=== PATIENT | male | born 1965 | race Caucasian/White ===

== ENCOUNTER 2017-06-30 14:14 | Emergency (ER) | payer BC ==
--- NOTE | 2017-06-30 15:05 | ERPHSYRPT ---
- History of Present Illness Time Seen by Provider: 06/30/17 14:55 Source: patient Exam Limitations: no limitations (No now is EKGs and great) Physician History: The patient is a 51-year-old male with his complaining that he had a headache and wasn't feeling well at work today. His face was warm. He was slightly nauseated. He denies any chest pain or shortness of breath. He took his blood pressure and it was elevated significantly at work. He said it was 170/109. He stopped taking his hypertensive medicines about one and a half years ago. His past medical history is significant for hypertension. Timing/Duration: today Severity: moderate Modifying Factors: Improves With: nothing Associated Symptoms: nausea, headaches, No shortness of breath, No cough, No chest pain Allergies/Adverse Reactions: No Known Drug Allergies Allergy (Verified 06/30/17 14:30) Hx Tetanus, Diphtheria Vaccination/Date Given: Yes Hx Influenza Vaccination/Date Given: No (2011) Hx Pneumococcal Vaccination/Date Given: No - Review of Systems Constitutional: No Fever, No Chills Eyes: No Symptoms Ears, Nose, & Throat: No Symptoms Respiratory: No Cough, No Dyspnea Cardiac: No Chest Pain, No Edema, No Syncope Abdominal/Gastrointestinal: Nausea, No Vomiting, No Diarrhea Genitourinary Symptoms: No Dysuria Musculoskeletal: No Back Pain, No Neck Pain Skin: No Rash Neurological: Headache Psychological: No Symptoms Hematologic/Lymphatic: No Symptoms Immunological/Allergic: No Symptoms All Other Systems: Reviewed and Negative - Past Medical History Pertinent Past Medical History: Yes Neurological History: No Pertinent History ENT History: No Pertinent History Cardiac History: Hypertension Respiratory History: Bronchitis, Pneumonia Endocrine Medical History: No Pertinent History Musculoskeletal History: No Pertinent History GI Medical History: GERD, Hernia, Irritable Bowel History: No Pertinent History Psycho-Social History: No Pertinent History Male Reproductive Disorders: No Pertinent History Other Medical History: HIATAL HERNIA - Past Surgical History Past Surgical History: Yes Neuro Surgical History: No Pertinent History Cardiac: No Pertinent History Respiratory: No Pertinent History Gastrointestinal: Appendectomy, Hernia Repair Genitourinary: No Pertinent History Musculoskeletal: Amputation Male Surgical History: No Pertinent History Other Surgical History: RIGHT PINKY AMPUTATION. Hiatal hernia repair. Abdominal hernia repair. - Social History Smoking Status: Current every day smoker How long have you smoked: 30 years Exposure to second hand smoke: Yes Drug Use: none Patient Lives Alone: No - Nursing Vital Signs Nursing Vital Signs: Initial Vital Signs Temperature 97.4 F 06/30/17 14:22 Pulse Rate 87 06/30/17 14:22 Respiratory Rate 18 06/30/17 14:22 Blood Pressure 199/125 06/30/17 14:22 O2 Sat by Pulse Oximetry 99 06/30/17 14:22 Pain Scale Pain Intensity 4 - Physical Exam General Appearance: no apparent distress, alert Eye Exam: PERRL/EOMI, eyes nml inspection Ears, Nose, Throat Exam: normal ENT inspection Neck Exam: normal inspection, non-tender, supple, full range of motion Respiratory Exam: normal breath sounds, lungs clear, No respiratory distress Cardiovascular Exam: regular rate/rhythm, normal heart sounds, normal peripheral pulses Gastrointestinal/Abdomen Exam: soft, normal bowel sounds, No tenderness, No mass Rectal Exam: not done Back Exam: normal inspection, normal range of motion, No CVA tenderness, No vertebral tenderness Extremity Exam: normal inspection, normal range of motion, pelvis stable Neurologic Exam: alert, oriented x 3, cooperative, normal mood/affect, nml cerebellar function, nml station & gait, sensation nml, No motor deficits Skin Exam: normal color, warm, dry, No rash Lymphatic Exam: No adenopathy SpO2 Interpretation: normal - Course EKG Interpreted by Me: RATE, Sinus Rhythm, NORMAL AXIS, NORMAL INTERVALS, NORMAL QRS, NORMAL ST-T - Radiology Exams Chest X-ray Interpretation: Reviewed by me, Teleradiologist Report, Negative (per Dr Fernandez) Ordered Tests: Active Orders 24 hr Category Date Time Status EKG-ER Only STAT Care 06/30/17 15:08 Active IV Insertion STAT Care 06/30/17 15:08 Active CHEST 2 VIEWS (PA AND LAT) Stat Exams 06/30/17 15:09 Completed CBC W DIFF Stat Lab 06/30/17 14:45 Completed CMP Stat Lab 06/30/17 14:45 Completed LIPASE Stat Lab 06/30/17 14:45 Completed TROPONIN Q3H Lab 06/30/17 14:45 Completed TROPONIN Q3H Lab 06/30/17 18:15 Ordered TROPONIN Q3H Lab 06/30/17 21:15 Ordered TROPONIN Q3H Lab 07/01/17 00:15 Ordered TROPONIN Q3H Lab 07/01/17 03:15 Ordered Medication Summary Discontinued Medications Generic Name Dose Route Start Last Admin Trade Name Dori PRN Reason Stop Dose Admin Labetalol HCl 10 mg 06/30/17 15:10 06/30/17 15:15 Trandate 20 Mg/5 Ml Syringe IV 06/30/17 15:11 10 mg STAT ONE Administration Labetalol HCl Confirm 06/30/17 15:12 Trandate 20 Mg/5 Ml Syringe Administered 06/30/17 15:13 Dose 20 mg IV .STK-MED ONE Labetalol HCl 10 mg 06/30/17 16:08 06/30/17 16:16 Trandate 20 Mg/5 Ml Syringe IV 06/30/17 16:09 10 mg STAT ONE Administration Labetalol HCl Confirm 06/30/17 16:11 Trandate 20 Mg/5 Ml Syringe Administered 06/30/17 16:12 Dose 20 mg IV .STK-MED ONE Ondansetron HCl 4 mg 06/30/17 15:08 06/30/17 15:15 Zofran 4 Mg/2 Ml Vial IV 06/30/17 15:09 4 mg STAT ONE Administration Ondansetron HCl Confirm 06/30/17 15:15 Zofran 4 Mg/2 Ml Vial Administered 06/30/17 15:16 Dose 4 mg .ROUTE .STK-MED ONE Lab/Rad Data: Laboratory Result Diagrams 06/30/17 14:45 06/30/17 14:45 Laboratory Results 06/30/17 06/30/17 06/30/17 Range/Units 14:45 14:45 14:45 WBC 6.2 (4.0-10.5) K/mm3 RBC 5.25 (4.1-5.6) M/mm3 Hgb 15.7 (12.5-18.0) gm/dl Hct 46.2 (42-50) % MCV 88.0 (78-100) fl MCH 29.9 (26-32) pg MCHC 34.0 (32-36) g/dl RDW 13.1 (11.5-14.0) % Plt Count 165 (150-450) K/mm3 MPV 11.4 H (6-9.5) fl Gran % 58.6 (36.0-66.0) % Lymphocytes % 25.8 (24.0-44.0) % Monocytes % 12.8 H (0.0-12.0) % Eosinophils % 2.6 (0.00-5.0) % Basophils % 0.2 (0.0-0.4) % Basophils # 0.01 (0-0.4) Sodium 141 (137-145) mmol/L Potassium 3.8 (3.5-5.1) mmol/L Chloride 101 (98-107) mmol/L Carbon Dioxide 28 (22-30) mmol/L Anion Gap 15.3 H (5-15) MEQ/L BUN 13 (9-20) mg/dL Creatinine 0.85 (0.66-1.25) mg/dL Estimated GFR > 60 ML/MIN Glucose 94 (74-106) mg/dL Calcium 9.1 (8.4-10.2) mg/dL Total Bilirubin 0.30 (0.2-1.3) mg/dL AST 40 (17-59) U/L ALT 52 H (0-50) U/L Alkaline Phosphatase 75 (38-126) U/L Troponin I < 0.012 (0.000-0.034) ng/mL Serum Total Protein 7.8 (6.3-8.2) g/dL Albumin 4.4 (3.5-5.0) g/dL Lipase 94 (23-300) U/L - Progress Progress: improved Progress Note: 06/30/17 17:19 Pt given labetalol 10 mg twice by IV. Pt feeling better. BP now 146/98 manually. Counseled pt/family regarding: diagnosis - Departure Time of Disposition: 17:19 Departure Disposition: Home Clinical Impression: Hypertension Condition: Stable Critical Care Time: No Referrals: DANIEL ZEPEDA MD [Primary Care Provider] - Additional Instructions: You have an elevated blood pressure today. You were given labetalol 20 mg IV in the ER. Take bystolic 5mg daily. Follow-up with your primary care doctor in 1-2 days. Prescriptions: Nebivolol HCl [Bystolic] 5 mg PO DAILY #10 tablet
[2017-06-30] MEDS ORDERED: Zofran 4 MG/2 ML VIAL IV ONE (15:08)
[2017-06-30] MEDS ORDERED: TRANDATE 20 MG/5 ML SYRINGE IV ONE ×4 (15:10→16:11)
[2017-06-30] MEDS ORDERED: Zofran 4 MG/2 ML VIAL ONE (15:15)
[2017-06-30 15:31] LABS: BASOPHIL % 0.2 % (0.0-0.4); Basophil (Absolute #) 0.01 (0-0.4); Eosinophil % 2.6 % (0.00-5.0); Eosinophil (Absolute #) 0.16 (0-0.5); Granulocyte Absolute (ANC) 3.62 (1.4-6.9); Granulocytes % 58.6 % (36.0-66.0); Hematocrit 46.2 % (42-50); Hemoglobin 15.7 gm/dl (12.5-18.0); Lymphocyte (Absolute #) 1.59 (1.0-4.6); Lymphocytes % 25.8 % (24.0-44.0); Mean Corpuscular Hemoglobin 29.9 pg (26-32); Mean Platelet Volume 11.4 fl (6-9.5); Monocyte (Absolute #) 0.79 (0.0-1.3); Monocytes % 12.8 % (0.0-12.0); Platelet Count 165 K/mm3 (150-450); Red Blood Count 5.25 M/mm3 (4.1-5.6); Red Cell Distribution Width 13.1 % (11.5-14.0); White Blood Count 6.2 K/mm3 (4.0-10.5)
[2017-06-30 15:47] LABS: ALBUMIN 4.4 g/dL (3.5-5.0); ALKALINE PHOSPHATASE 75 U/L (38-126); ANION GAP 15.3 MEQ/L (5-15); BLOOD UREA NITROGEN 13 mg/dL (9-20); CHLORIDE 101 mmol/L (98-107); Calcium 9.1 mg/dL (8.4-10.2); Carbon Dioxide 28 mmol/L (22-30); Creatinine 1 0.85 mg/dL (0.66-1.25); Glucose 94 mg/dL (74-106); LIPASE 94 U/L (23-300); Potassium 3.8 mmol/L (3.5-5.1); SGOT/AST 40 U/L (17-59); SGPT/ALT 52 U/L (0-50); SODIUM 141 mmol/L (137-145); Total Protein 7.8 g/dL (6.3-8.2)
--- NOTE | 2017-06-30 16:15 | XRAY ---
Indication: Sudden onset hypertension. Work stress. Comparison: April 01, 2013. PA/lateral chest remains clear. Heart and mediastinal structures within normal limits. Bony thorax intact. No new/acute findings. Impression: Stable nonacute chest.
[2017-06-30 17:08] VITALS: O2SAT 99
[2017-06-30 17:48] VITALS: BP 150/97; PULSE 82
== END 2017-06-30 17:47 | disposition home or self-care (01) ==
LOC: ED 14:14
DX: I10 Essential (primary) hypertension (principal); R51 Headache
CPT/HCPCS: 36000; 36415; 71046; 80053; 83690; 84484; 85025; 93005; 96374; 96375; 96376; 99284; 99285; J2405

== ENCOUNTER 2018-08-12 18:53 | Observation (INO) | payer BC ==
[2018-08-12] MEDS ORDERED: NITRO-BID 2% UD PACKETS TOP ONE (19:18)
[2018-08-12] MEDS ORDERED: Nitrostat 0.4 MG (ED) SL ONE ×2 (19:18→19:27)
[2018-08-12] MEDS ORDERED: NITRO-BID 2% UD PACKETS ONE ×2 (19:26→19:30)
[2018-08-12 19:30] LABS: BASOPHIL % 0.3 % (0.0-0.4); Basophil (Absolute #) 0.02 (0-0.4); Eosinophil % 2.9 % (0.00-5.0); Eosinophil (Absolute #) 0.18 (0-0.5); Granulocyte Absolute (ANC) 3.35 (1.4-6.9); Granulocytes % 53.9 % (36.0-66.0); Hematocrit 43.9 % (42-50); Hemoglobin 15.2 gm/dl (12.5-18.0); Lymphocyte (Absolute #) 1.94 (1.0-4.6); Lymphocytes % 31.2 % (24.0-44.0); Mean Cell Volume 89.8 fl (78-100); Mean Corpuscular Hemoglobin 31.1 pg (26-32); Mean Corpuscular Hgb Concent. 34.6 g/dl (32-36); Monocyte (Absolute #) 0.73 (0.0-1.3); Monocytes % 11.7 % (0.0-12.0); Platelet Count 153 K/mm3 (150-450); Red Blood Count 4.89 M/mm3 (4.1-5.6); Red Cell Distribution Width 12.4 % (11.5-14.0); White Blood Count 6.2 K/mm3 (4.0-10.5)
[2018-08-12] MEDS ORDERED: Sodium Chloride 0.9% 1000 ML 1,000 ML IV SCH (19:30)
[2018-08-12 19:36] LABS: INR 1.05 (0.8-3.0); PROTIME 12.2 SECONDS (8.83-12.87)
--- NOTE | 2018-08-12 19:40 | ERPHSYRPT ---
- History of Present Illness Time Seen by Provider: 08/12/18 19:10 Historian: patient Exam Limitations: clinical condition Patient Subjective Stated Complaint: pt here for pain to chest that radiates down left arm and left leg for 2 weeks, no injury, some nausea today, no sob, no fever, Triage Nursing Assessment: pt alert, resp easy, skin w/d/p. no edema noted, moves all ext well, Physician History: PATIENT WITH A HISTORY OF HYPERTENSION, PREVIOUS EVALUATION FOR CORONARY ARTERY DISEASE WITH A NORMAL STRESS TEST 3-4 YEARS AGO, COMPLAINS OF INTERMITTENT SUBSTERNAL CHEST PAIN FOR 1 WEEK, WHICH HE DESCRIBES CHEST TIGHTNESS, OCCASIONAL RADIATION TO HIS ARMS, AND BACK. HAS PAIN SCALE 7/10, EXACERBATED UPON EXERTION, OCCASIONAL DYSPNEA, DISCOMFORT RADIATES TO LEFT ARM AND BACK. DENIES PALPITATIONS. Timing/Duration: week(s) Activities at Onset: activity Quality: sharpness, tightness Location: substernal Chest Pain Radiation: neck, back Severity of Pain-Max: moderate Severity of Pain-Current: moderate Modifying Factors: Improves With: exertion Associated Symptoms: shortness of breath, weakness Prior Chest Pain/Cardiac Workup: stress test Nitro Today/Relief: 0.4 mg x 2, provided by ED, mild relief Aspirin Treatment Today: 325 mg x 1, provided at home Allergies/Adverse Reactions: No Known Drug Allergies Allergy (Verified 08/12/18 19:03) Home Medications: Aspirin EC 325 mg [Ecotrin 325 MG] 325 mg DAILY 08/12/18 [History] Fluoxetine HCl 10 mg [Prozac 10 mg] 10 mg DAILY 08/12/18 [History] Hx Tetanus, Diphtheria Vaccination/Date Given: Yes Hx Influenza Vaccination/Date Given: No Hx Pneumococcal Vaccination/Date Given: No Immunizations Up to Date: Yes - Review of Systems Constitutional: No Symptoms, No Fever, No Chills Eyes: No Symptoms Ears, Nose, & Throat: No Symptoms Respiratory: No Symptoms, No Cough, No Dyspnea Cardiac: Chest Pain, No Edema, No Syncope Abdominal/Gastrointestinal: No Symptoms, No Abdominal Pain, No Nausea, No Vomiting, No Diarrhea Genitourinary Symptoms: No Symptoms, No Dysuria Musculoskeletal: No Symptoms, No Back Pain, No Neck Pain Skin: No Symptoms, No Rash Neurological: No Dizziness, No Focal Weakness, No Sensory Changes Psychological: No Symptoms Endocrine: No Symptoms All Other Systems: Reviewed and Negative - Past Medical History Pertinent Past Medical History: Yes Neurological History: No Pertinent History ENT History: No Pertinent History Cardiac History: Hypertension Respiratory History: Bronchitis, COPD, Pneumonia Endocrine Medical History: No Pertinent History Musculoskeletal History: No Pertinent History GI Medical History: GERD, Hernia, Irritable Bowel History: No Pertinent History Psycho-Social History: No Pertinent History Male Reproductive Disorders: No Pertinent History Other Medical History: HIATAL HERNIA - Past Surgical History Past Surgical History: Yes Neuro Surgical History: No Pertinent History Cardiac: No Pertinent History Respiratory: No Pertinent History Gastrointestinal: Appendectomy, Hernia Repair Genitourinary: No Pertinent History Musculoskeletal: Amputation Male Surgical History: No Pertinent History Other Surgical History: RIGHT PINKY AMPUTATION. Hiatal hernia repair. Abdominal hernia repair. - Social History Smoking Status: Former smoker How long have you smoked: 30 years Exposure to second hand smoke: Yes Drug Use: none Patient Lives Alone: No - Nursing Vital Signs Nursing Vital Signs: Initial Vital Signs Temperature 97.0 F 08/12/18 18:56 Pulse Rate 78 08/12/18 18:56 Respiratory Rate 16 08/12/18 18:56 Blood Pressure 150/98 08/12/18 18:56 O2 Sat by Pulse Oximetry 96 08/12/18 18:56 Pain Scale Pain Intensity 2 - Physical Exam General Appearance: no apparent distress, alert Eye Exam: PERRL/EOMI, eyes nml inspection Ears, Nose, Throat Exam: normal ENT inspection, moist mucous membranes Neck Exam: normal inspection, non-tender, supple, full range of motion Respiratory Exam: normal breath sounds, lungs clear, No respiratory distress Cardiovascular Exam: regular rate/rhythm, normal heart sounds, other (THERE IS A SYSTOLIC EJECTION MURMUR GRADE 3/6) Gastrointestinal/Abdomen Exam: soft, No tenderness, No mass Back Exam: normal inspection, No CVA tenderness, No vertebral tenderness Extremity Exam: normal inspection, normal range of motion Neurologic Exam: alert, oriented x 3, cooperative, normal mood/affect, sensation nml, No motor deficits Skin Exam: normal color, warm, dry SpO2 Interpretation: normal SpO2: 98 O2 Delivery: Room Air - Course EKG Interpreted by Me: RATE, Sinus Rhythm (RATE 71 NO ISCHEMIC CHANGES OR ECTOPY ), NORMAL AXIS Ordered Tests: Active Orders 24 hr Category Date Time Status Up With Assistance ROUTINE Activity 08/12/18 20:22 Ordered Call Admit Doctor for Orders ROUTINE Care 08/12/18 20:21 Ordered Behavioral Psychologist STAT Care 08/12/18 19:19 Active Code Status Order ROUTINE Care 08/12/18 20:21 Ordered EKG-ER Only STAT Care 08/12/18 19:18 Active IV Care Q6H Care 08/12/18 20:21 Ordered IV Insertion STAT Care 08/12/18 19:18 Active Implement Chest Pain Pathway ROUTINE Care 08/12/18 20:21 Ordered Oxygen-ED Only Nasal Cannula 2 lpm Care 08/12/18 19:[address] in Observation ROUTINE Care 08/12/18 20:21 Ordered Andrews Hose, Apply ROUTINE Care 08/12/18 20:21 Ordered Vital Signs Q4H Care 08/12/18 20:21 Ordered Weight,Daily 0600 Care 08/12/18 20:21 Ordered Cardiac Diet Diet 08/12/18 Breakfast Ordered CHEST 1 VIEW (PORTABLE) Stat Exams 08/12/18 19:18 Taken CBC W DIFF Stat Lab 08/12/18 19:25 Completed CMP Stat Lab 08/12/18 19:25 Completed D-DIMER QUANTITATION Stat Lab 08/12/18 19:25 Completed LIPID PROFILE AM.LAB Lab 08/13/18 04:00 Ordered NT PRO BNP Stat Lab 08/12/18 19:25 Completed PROTIME WITH INR Stat Lab 08/12/18 19:25 Completed TROPONIN Q3H Lab 08/12/18 19:25 Completed TROPONIN Q3H Lab 08/12/18 22:30 Ordered TROPONIN Q3H Lab 08/13/18 01:30 Ordered TROPONIN Q3H Lab 08/13/18 04:30 Ordered TROPONIN Q3H Lab 08/13/18 07:30 Ordered EKG Q8HX2,QAMX3,PRN RT 08/12/18 20:21 Ordered Oxygen Nasal Cannula 2 lpm RT 08/12/18 20:21 Ordered Pulse Oximetry Q4H RT 08/12/18 20:21 Ordered Transfer Order Routine Transfer 08/12/18 Ordered Medication Summary Generic Name Dose Route Start Last Admin Trade Name Freq PRN Reason Stop Dose Admin Sodium Chloride 1,000 mls @ 50 mls/hr 08/12/18 19:30 08/12/18 19:28 Sodium Chloride 0.9% 1000 Ml IV 09/11/18 19:29 50 mls/hr .Q20H EDGARDO Administration Discontinued Medications Generic Name Dose Route Start Last Admin Trade Name Dori PRN Reason Stop Dose Admin Nitroglycerin 0.4 mg 08/12/18 19:18 08/12/18 19:29 Nitrostat 0.4 Mg (Ed) SL 08/12/18 19:19 0.4 mg STAT ONE Administration Nitroglycerin 1 gm 08/12/18 19:18 08/12/18 19:29 Nitro-Bid 2% Ud Packets TOP 08/12/18 19:19 1 gm STAT ONE Administration Nitroglycerin Confirm 08/12/18 19:26 Nitro-Bid 2% Ud Packets Administered 08/12/18 19:27 Dose 1 gm .ROUTE .STK-MED ONE Nitroglycerin Confirm 08/12/18 19:27 Nitrostat 0.4 Mg (Ed) Administered 08/12/18 19:28 Dose 0.4 mg SL .STK-MED ONE Nitroglycerin Confirm 08/12/18 19:30 Nitro-Bid 2% Ud Packets Administered 08/12/18 19:31 Dose 1 gm .ROUTE .STK-MED ONE Lab/Rad Data: Laboratory Result Diagrams 08/12/18 19:25 08/12/18 19:25 Laboratory Results 08/12/18 08/12/18 08/12/18 Range/Units 19:25 19:25 19:25 WBC (4.0-10.5) K/mm3 RBC (4.1-5.6) M/mm3 Hgb (12.5-18.0) gm/dl Hct (42-50) % MCV (78-100) fl MCH (26-32) pg MCHC (32-36) g/dl RDW (11.5-14.0) % Plt Count (150-450) K/mm3 MPV (6-9.5) fl Gran % (36.0-66.0) % Eos # (Auto) (0-0.5) Absolute Lymphs (auto) (1.0-4.6) Absolute Monos (auto) (0.0-1.3) Lymphocytes % (24.0-44.0) % Monocytes % (0.0-12.0) % Eosinophils % (0.00-5.0) % Basophils % (0.0-0.4) % Absolute Granulocytes (1.4-6.9) Basophils # (0-0.4) PT 12.2 (8.83-12.87) SECONDS INR 1.05 (0.8-3.0) D-Dimer 389 (215-500) ng/mL Sodium 140 (137-145) mmol/L Potassium 3.9 (3.5-5.1) mmol/L Chloride 105 (98-107) mmol/L Carbon Dioxide 23 (22-30) mmol/L Anion Gap 15.3 H (5-15) MEQ/L BUN 14 (9-20) mg/dL Creatinine 0.75 (0.66-1.25) mg/dL Estimated GFR > 60.0 ML/MIN Glucose 88 (74-106) mg/dL Calcium 9.5 (8.4-10.2) mg/dL Total Bilirubin 0.20 (0.2-1.3) mg/dL AST 38 (17-59) U/L ALT 61 H (0-50) U/L Alkaline Phosphatase 65 (38-126) U/L Troponin I < 0.012 (0.000-0.034) ng/mL NT-Pro-B Natriuret Pep 47.7 (0-900) pg/mL Serum Total Protein 7.9 (6.3-8.2) g/dL Albumin 4.3 (3.5-5.0) g/dL 08/12/ Range/Units 19:25 WBC 6.2 (4.0-10.5) K/mm3 RBC 4.89 (4.1-5.6) M/mm3 Hgb 15.2 (12.5-18.0) gm/dl Hct 43.9 (42-50) % MCV 89.8 (78-100) fl MCH 31.1 (26-32) pg MCHC 34.6 (32-36) g/dl RDW 12.4 (11.5-14.0) % Plt Count 153 (150-450) K/mm3 MPV 11.0 H (6-9.5) fl Gran % 53.9 (36.0-66.0) % Eos # (Auto) 0.18 (0-0.5) Absolute Lymphs (auto) 1.94 (1.0-4.6) Absolute Monos (auto) 0.73 (0.0-1.3) Lymphocytes % 31.2 (24.0-44.0) % Monocytes % 11.7 (0.0-12.0) % Eosinophils % 2.9 (0.00-5.0) % Basophils % 0.3 (0.0-0.4) % Absolute Granulocytes 3.35 (1.4-6.9) Basophils # 0.02 (0-0.4) PT (8.83-12.87) SECONDS INR (0.8-3.0) D-Dimer (215-500) ng/mL Sodium (137-145) mmol/L Potassium (3.5-5.1) mmol/L Chloride (98-107) mmol/L Carbon Dioxide (22-30) mmol/L Anion Gap (5-15) MEQ/L BUN (9-20) mg/dL Creatinine (0.66-1.25) mg/dL Estimated GFR ML/MIN Glucose (74-106) mg/dL Calcium (8.4-10.2) mg/dL Total Bilirubin (0.2-1.3) mg/dL AST (17-59) U/L ALT (0-50) U/L Alkaline Phosphatase (38-126) U/L Troponin I (0.000-0.034) ng/mL NT-Pro-B Natriuret Pep (0-900) pg/mL Serum Total Protein (6.3-8.2) g/dL Albumin (3.5-5.0) g/dL - Progress Progress Note: 08/12/18 19:42 PATIENT TOOK AN ADULT ASPIRIN 325MG ORALLY, IV NORMAL SALINE 50ML/HR, NTG 0.4MG SL Q 5MIN X 3, NITROPASTE 1"ANTERIOR CHEST WALL 08/12/18 20:19, CHEST PAIN IMPROVED TO PAIN SCALE 2/10, ALL LAB TEST TROPONIN, DDIMER REVIEWED AND ARE NORMAL Discussed with : Neptali (DISCUSSED WITH DR ZEPEDA AT 1999 FOR OBSERVATION) - Departure Departure Disposition: Observation Clinical Impression: ACUTE CHEST PAIN Condition: Stable Critical Care Time: No Referrals: DANIEL ZEPEDA MD [Primary Care Provider] -
[2018-08-12 19:53] LABS: ALBUMIN 4.3 g/dL (3.5-5.0); ALKALINE PHOSPHATASE 65 U/L (38-126); ANION GAP 15.3 MEQ/L (5-15); BLOOD UREA NITROGEN 14 mg/dL (9-20); CHLORIDE 105 mmol/L (98-107); Calcium 9.5 mg/dL (8.4-10.2); Carbon Dioxide 23 mmol/L (22-30); Creatinine 1 0.75 mg/dL (0.66-1.25); Glucose 88 mg/dL (74-106); NT PRO BNP 47.7 pg/mL (0-900); Potassium 3.9 mmol/L (3.5-5.1); SGOT/AST 38 U/L (17-59); SGPT/ALT 61 U/L (0-50); SODIUM 140 mmol/L (137-145); Total Protein 7.9 g/dL (6.3-8.2)
[2018-08-12] MEDS ORDERED: MAALOX ES 30 ML UNIT DOSE PO PRN (20:21)
[2018-08-12] MEDS ORDERED: TYLENOL 325 MG PO PRN (20:21)
[2018-08-12] MEDS ORDERED: MILK OF MAGNESIA 30 ML PO PRN (20:21)
[2018-08-12] MEDS ORDERED: Nitrostat 0.4 MG Tablet SL PRN (20:21)
[2018-08-12] MEDS ORDERED: Zofran 4 MG/2 ML VIAL IV PRN (20:21)
[2018-08-12] MEDS ORDERED: Senokot-S Tablet PO PRN (20:21)
[2018-08-12] MEDS: Pepcid 20 MG PO SCH (23:14)
[2018-08-13] MEDS: NITRO-BID 2% UD PACKETS TOP SCH ×2 (02:34→11:22)
[2018-08-13 05:15] LABS: Risk Ratio 6.6
--- NOTE | 2018-08-13 08:38 | XRAY ---
Indication: Chest pain. Comparison: June 30, 2017. Portable chest remains clear. Heart and mediastinal structures within normal limits. Bony thorax intact again with mild degenerative changes. No new/acute findings.
[2018-08-13] MEDS: PROZAC 10 MG PO SCH ×2 (09:20→09:44)
[2018-08-13] MEDS: Pepcid 20 MG PO SCH (09:20)
[2018-08-13] MEDS ORDERED: Bystolic 5 MG PO SCH (10:00)
[2018-08-13] MEDS ORDERED: Zocor 10MG PO SCH (10:00)
[2018-08-13] MEDS ORDERED: Ecotrin 325 MG PO SCH (10:00)
[2018-08-13 12:34] VITALS: BP 111/68; PULSE 64; O2SAT 94
--- NOTE | 2018-08-13 13:01 | PCM.SSS ---
History of Present Illness - Chief Complaint Chief Complaint: acute chest pain for 1 week History of Present Illness: is a 52 year old male came to ER c/o chest pain, left shoulder pain. no shortness of breath - Review of Systems Constitutional: No Fever, No Chills Eyes: No Symptoms Ears, Nose, & Throat: No Symptoms Respiratory: No Cough, No Short Of Breath Cardiac: Chest Pain, No Edema, No Syncope Abdominal/Gastrointestinal: No Abdominal Pain, No Nausea, No Vomiting, No Diarrhea Genitourinary Symptoms: No Dysuria Musculoskeletal: No Back Pain, No Neck Pain Skin: No Rash Neurological: No Dizziness, No Focal Weakness, No Sensory Changes Psychological: No Symptoms Endocrine: No Symptoms Hematologic/Lymphatic: No Symptoms Immunological/Allergic: No Symptoms Medications & Allergies Home Medications: Home Medication List Nebivolol HCl [Bystolic] 5 mg PO DAILY #10 tablet 06/30/17 [Rx Confirmed ] Fluoxetine HCl 10 mg [Prozac 10 mg] 10 mg DAILY 08/12/18 [History Confirmed 08/12/18] Meloxicam 7.5 mg [Mobic 7.5 MG] 7.5 mg PO DAILY #30 tablet 08/13/18 [Rx] Allergies/Adverse Reactions: Allergies Allergy/AdvReac Type Severity Reaction Status Date / Time No Known Drug Allergies Allergy Verified 08/12/18 19:03 - Past Medical History Past Medical History: Yes Neurological History: No Pertinent History ENT History: No Pertinent History Cardiac History: Hypertension Respiratory History: Bronchitis, COPD, Pneumonia Endocrine Medical History: No Pertinent History Musculoskelatal History: No Pertinent History GI Medical History: GERD, Hernia History: No Pertinent History Pyscho-Social History: No Pertinent History Male Reproductive Disorders: No Pertinent History Comment: HIATAL HERNIA - Past Surgical History Past Surgical History: Yes Neuro Surgical History: No Pertinent History Cardiac History: No Pertinent History Respiratory Surgery: No Pertinent History GI Surgical History: Appendectomy, Hernia Repair Genitourinary Surgical Hx: No Pertinent History Musculskeletal Surgical Hx: Amputation Male Surgical History: No Pertinent History Other Surgical History: RIGHT PINKY AMPUTATION. Hiatal hernia repair. Abdominal hernia repair. - Social History Smoking Status: Former smoker How long have you smoked: 30 years Exposure to second hand smoke: Yes Alcohol: Occasionally Drug Use: none - Physical Exam Vital Signs: Vital Signs - 24 hr Temp Pulse Pulse Resp BP Pulse Ox 08/13/18 12:00 97.8 F 64 18 111/68 94 L 08/13/18 07:49 97.5 F 61 16 117/74 95 08/13/18 07:37 96 08/13/18 05:00 98 08/13/18 04:00 97.5 F 65 18 111/72 98 08/13/18 01:00 98 08/12/18 23:39 97.8 F 60 18 125/84 18 L 08/12/18 23:32 98.2 F 67 17 121/76 97 08/12/18 21:44 96 08/12/18 20:24 67 14 120/78 97 08/12/18 20:23 98 08/12/18 19:56 68 18 125/80 98 08/12/18 19:32 70 18 138/94 98 08/12/18 18:56 97.0 F 81 78 16 150/98 96 Oxygen-Last 24 hours O2 Percentage 2 Liters = 28% O2 Percentage 2 Liters = 28% O2 Percentage 2 Liters = 28% O2 Percentage 2 Liters = 28% O2 Percentage 2 Liters = 28% Oxygen Flowrate (L/min)-RT 2 General Appearance: no apparent distress, alert Neurologic Exam: alert, oriented x 3, cooperative, normal mood/affect, nml cerebellar function, nml station & gait, sensation nml, No motor deficits Eye Exam: PERRL/EOMI, eyes nml inspection Ears, Nose, Throat Exam: normal ENT inspection, TMs normal, pharynx normal, moist mucous membranes Neck Exam: normal inspection, non-tender, supple, full range of motion Respiratory Exam: normal breath sounds, lungs clear, No respiratory distress Cardiovascular Exam: regular rate/rhythm, normal heart sounds, normal peripheral pulses Gastrointestinal/Abdomen Exam: soft, normal bowel sounds, No tenderness, No mass Back Exam: normal inspection, normal range of motion, No CVA tenderness, No vertebral tenderness Extremity Exam: normal inspection, normal range of motion, pelvis stable Skin Exam: normal color, warm, dry, No rash Lymphatic Exam: No adenopathy Results - Labs Lab/Micro Results: Lab Results-Last 24 Hours 08/12/18 08/12/18 08/12/18 Range/Units 19:25 19:25 19:25 WBC 6.2 (4.0-10.5) K/mm3 RBC 4.89 (4.1-5.6) M/mm3 Hgb 15.2 (12.5-18.0) gm/dl Hct 43.9 (42-50) % MCV 89.8 (78-100) fl MCH 31.1 (26-32) pg MCHC 34.6 (32-36) g/dl RDW 12.4 (11.5-14.0) % Plt Count 153 (150-450) K/mm3 MPV 11.0 H (6-9.5) fl Gran % 53.9 (36.0-66.0) % Eos # (Auto) 0.18 (0-0.5) Absolute Lymphs (auto) 1.94 (1.0-4.6) Absolute Monos (auto) 0.73 (0.0-1.3) Lymphocytes % 31.2 (24.0-44.0) % Monocytes % 11.7 (0.0-12.0) % Eosinophils % 2.9 (0.00-5.0) % Basophils % 0.3 (0.0-0.4) % Absolute Granulocytes 3.35 (1.4-6.9) Basophils # 0.02 (0-0.4) PT 12.2 (8.83-12.87) SECONDS INR 1.05 (0.8-3.0) D-Dimer 389 (215-500) ng/mL Sodium 140 (137-145) mmol/L Potassium 3.9 (3.5-5.1) mmol/L Chloride 105 (98-107) mmol/L Carbon Dioxide 23 (22-30) mmol/L Anion Gap 15.3 H (5-15) MEQ/L BUN 14 (9-20) mg/dL Creatinine 0.75 (0.66-1.25) mg/dL Estimated GFR > 60.0 ML/MIN Glucose 88 (74-106) mg/dL Calcium 9.5 (8.4-10.2) mg/dL Total Bilirubin 0.20 (0.2-1.3) mg/dL AST 38 (17-59) U/L ALT 61 H (0-50) U/L Alkaline Phosphatase 65 (38-126) U/L Troponin I (0.000-0.034) ng/mL NT-Pro-B Natriuret Pep 47.7 (0-900) pg/mL Serum Total Protein 7.9 (6.3-8.2) g/dL Albumin 4.3 (3.5-5.0) g/dL Triglycerides (30-150) mg/dL Cholesterol (50-200) mg/dL LDL Cholesterol (30-100) mg/dL HDL Cholesterol (40-60) mg/dL Heart Disease Risk Ratio 08/12/18 08/12/18 08/13/18 Range/Units 19:25 22:40 01:30 WBC (4.0-10.5) K/mm3 RBC (4.1-5.6) M/mm3 Hgb (12.5-18.0) gm/dl Hct (42-50) % MCV (78-100) fl MCH (26-32) pg MCHC (32-36) g/dl RDW (11.5-14.0) % Plt Count (150-450) K/mm3 MPV (6-9.5) fl Gran % (36.0-66.0) % Eos # (Auto) (0-0.5) Absolute Lymphs (auto) (1.0-4.6) Absolute Monos (auto) (0.0-1.3) Lymphocytes % (24.0-44.0) % Monocytes % (0.0-12.0) % Eosinophils % (0.00-5.0) % Basophils % (0.0-0.4) % Absolute Granulocytes (1.4-6.9) Basophils # (0-0.4) PT (8.83-12.87) SECONDS INR (0.8-3.0) D-Dimer (215-500) ng/mL Sodium (137-145) mmol/L Potassium (3.5-5.1) mmol/L Chloride (98-107) mmol/L Carbon Dioxide (22-30) mmol/L Anion Gap (5-15) MEQ/L BUN (9-20) mg/dL Creatinine (0.66-1.25) mg/dL Estimated GFR ML/MIN Glucose (74-106) mg/dL Calcium (8.4-10.2) mg/dL Total Bilirubin (0.2-1.3) mg/dL AST (17-59) U/L ALT (0-50) U/L Alkaline Phosphatase (38-126) U/L Troponin I < 0.012 < 0.012 < 0.012 (0.000-0.034) ng/mL NT-Pro-B Natriuret Pep (0-900) pg/mL Serum Total Protein (6.3-8.2) g/dL Albumin (3.5-5.0) g/dL Triglycerides (30-150) mg/dL Cholesterol (50-200) mg/dL LDL Cholesterol (30-100) mg/dL HDL Cholesterol (40-60) mg/dL Heart Disease Risk Ratio 08/13/18 08/13/18 08/13/18 Range/Units 04:40 04:40 07:18 WBC (4.0-10.5) K/mm3 RBC (4.1-5.6) M/mm3 Hgb (12.5-18.0) gm/dl Hct (42-50) % MCV (78-100) fl MCH (26-32) pg MCHC (32-36) g/dl RDW (11.5-14.0) % Plt Count (150-450) K/mm3 MPV (6-9.5) fl Gran % (36.0-66.0) % Eos # (Auto) (0-0.5) Absolute Lymphs (auto) (1.0-4.6) Absolute Monos (auto) (0.0-1.3) Lymphocytes % (24.0-44.0) % Monocytes % (0.0-12.0) % Eosinophils % (0.00-5.0) % Basophils % (0.0-0.4) % Absolute Granulocytes (1.4-6.9) Basophils # (0-0.4) PT (8.83-12.87) SECONDS INR (0.8-3.0) D-Dimer (215-500) ng/mL Sodium (137-145) mmol/L Potassium (3.5-5.1) mmol/L Chloride (98-107) mmol/L Carbon Dioxide (22-30) mmol/L Anion Gap (5-15) MEQ/L BUN (9-20) mg/dL Creatinine (0.66-1.25) mg/dL Estimated GFR ML/MIN Glucose (74-106) mg/dL Calcium (8.4-10.2) mg/dL Total Bilirubin (0.2-1.3) mg/dL AST (17-59) U/L ALT (0-50) U/L Alkaline Phosphatase (38-126) U/L Troponin I < 0.012 < 0.012 (0.000-0.034) ng/mL NT-Pro-B Natriuret Pep (0-900) pg/mL Serum Total Protein (6.3-8.2) g/dL Albumin (3.5-5.0) g/dL Triglycerides 287 H (30-150) mg/dL Cholesterol 185 (50-200) mg/dL LDL Cholesterol 112 H (30-100) mg/dL HDL Cholesterol 28 L (40-60) mg/dL Heart Disease Risk Ratio 6.6 - Radiology Impressions Radiology Exams & Impressions: Radiology Procedures Category Date Time Status CHEST 1 VIEW (PORTABLE) Stat Exams 08/12/18 19:18 Completed - Other Procedures and Tests Respiratory Therapy 08/12/18 20:21 Oxygen Nasal Cannula 2 lpm 08/14/18 05:00 EKG ONCE 08/15/18 05:00 EKG ONCE 08/16/18 05:00 EKG ONCE Assessment/Plan (1) Shoulder pain, left Current Visit: Yes Status: Acute Qualifiers: Chronicity: acute Qualified Code(s): M25.512 - Pain in left shoulder Code(s): M25.512 - PAIN IN LEFT SHOULDER (2) Chest pain Current Visit: Yes Status: Acute Qualifiers: Chest pain type: unspecified Qualified Code(s): R07.9 - Chest pain, unspecified Code(s): R07.9 - CHEST PAIN, UNSPECIFIED (3) Hypertension Current Visit: Yes Status: Chronic Qualifiers: Hypertension type: essential hypertension Qualified Code(s): I10 - Essential (primary) hypertension Code(s): I10 - ESSENTIAL (PRIMARY) HYPERTENSION Hospital Summary - Vitals & Intake/Output Vital Signs: Vital Signs Temperature 97.8 F 08/13/18 12:00 Pulse Rate 64 08/13/18 12:00 Respiratory Rate 18 08/13/18 12:00 Blood Pressure 111/68 08/13/18 12:00 O2 Sat by Pulse Oximetry 94 L 08/13/18 12:00 Oxygen-Last Documented O2 Percentage 2 Liters = 28% Intake & Output: Intake & Output 08/11/18 08/12/18 08/13/18 08/14/18 11:59 11:59 11:59 11:59 Intake Total 673 480 Balance 673 480 Weight 107.7 kg - Lab Result Diagrams: 08/12/18 19:25 08/12/18 19:25 Lab Results-Last 24 Hrs: Lab Results-Last 24 Hours 08/12/18 08/12/18 08/12/18 Range/Units 19:25 19:25 19:25 WBC 6.2 (4.0-10.5) K/mm3 RBC 4.89 (4.1-5.6) M/mm3 Hgb 15.2 (12.5-18.0) gm/dl Hct 43.9 (42-50) % MCV 89.8 (78-100) fl MCH 31.1 (26-32) pg MCHC 34.6 (32-36) g/dl RDW 12.4 (11.5-14.0) % Plt Count 153 (150-450) K/mm3 MPV 11.0 H (6-9.5) fl Gran % 53.9 (36.0-66.0) % Eos # (Auto) 0.18 (0-0.5) Absolute Lymphs (auto) 1.94 (1.0-4.6) Absolute Monos (auto) 0.73 (0.0-1.3) Lymphocytes % 31.2 (24.0-44.0) % Monocytes % 11.7 (0.0-12.0) % Eosinophils % 2.9 (0.00-5.0) % Basophils % 0.3 (0.0-0.4) % Absolute Granulocytes 3.35 (1.4-6.9) Basophils # 0.02 (0-0.4) PT 12.2 (8.83-12.87) SECONDS INR 1.05 (0.8-3.0) D-Dimer 389 (215-500) ng/mL Sodium 140 (137-145) mmol/L Potassium 3.9 (3.5-5.1) mmol/L Chloride 105 (98-107) mmol/L Carbon Dioxide 23 (22-30) mmol/L Anion Gap 15.3 H (5-15) MEQ/L BUN 14 (9-20) mg/dL Creatinine 0.75 (0.66-1.25) mg/dL Estimated GFR > 60.0 ML/MIN Glucose 88 (74-106) mg/dL Calcium 9.5 (8.4-10.2) mg/dL Total Bilirubin 0.20 (0.2-1.3) mg/dL AST 38 (17-59) U/L ALT 61 H (0-50) U/L Alkaline Phosphatase 65 (38-126) U/L Troponin I (0.000-0.034) ng/mL NT-Pro-B Natriuret Pep 47.7 (0-900) pg/mL Serum Total Protein 7.9 (6.3-8.2) g/dL Albumin 4.3 (3.5-5.0) g/dL Triglycerides (30-150) mg/dL Cholesterol (50-200) mg/dL LDL Cholesterol (30-100) mg/dL HDL Cholesterol (40-60) mg/dL Heart Disease Risk Ratio 08/12/18 08/12/18 08/13/18 Range/Units 19:25 22:40 01:30 WBC (4.0-10.5) K/mm3 RBC (4.1-5.6) M/mm3 Hgb (12.5-18.0) gm/dl Hct (42-50) % MCV (78-100) fl MCH (26-32) pg MCHC (32-36) g/dl RDW (11.5-14.0) % Plt Count (150-450) K/mm3 MPV (6-9.5) fl Gran % (36.0-66.0) % Eos # (Auto) (0-0.5) Absolute Lymphs (auto) (1.0-4.6) Absolute Monos (auto) (0.0-1.3) Lymphocytes % (24.0-44.0) % Monocytes % (0.0-12.0) % Eosinophils % (0.00-5.0) % Basophils % (0.0-0.4) % Absolute Granulocytes (1.4-6.9) Basophils # (0-0.4) PT (8.83-12.87) SECONDS INR (0.8-3.0) D-Dimer (215-500) ng/mL Sodium (137-145) mmol/L Potassium (3.5-5.1) mmol/L Chloride (98-107) mmol/L Carbon Dioxide (22-30) mmol/L Anion Gap (5-15) MEQ/L BUN (9-20) mg/dL Creatinine (0.66-1.25) mg/dL Estimated GFR ML/MIN Glucose (74-106) mg/dL Calcium (8.4-10.2) mg/dL Total Bilirubin (0.2-1.3) mg/dL AST (17-59) U/L ALT (0-50) U/L Alkaline Phosphatase (38-126) U/L Troponin I < 0.012 < 0.012 < 0.012 (0.000-0.034) ng/mL NT-Pro-B Natriuret Pep (0-900) pg/mL Serum Total Protein (6.3-8.2) g/dL Albumin (3.5-5.0) g/dL Triglycerides (30-150) mg/dL Cholesterol (50-200) mg/dL LDL Cholesterol (30-100) mg/dL HDL Cholesterol (40-60) mg/dL Heart Disease Risk Ratio 08/13/18 08/13/18 08/13/18 Range/Units 04:40 04:40 07:18 WBC (4.0-10.5) K/mm3 RBC (4.1-5.6) M/mm3 Hgb (12.5-18.0) gm/dl Hct (42-50) % MCV (78-100) fl MCH (26-32) pg MCHC (32-36) g/dl RDW (11.5-14.0) % Plt Count (150-450) K/mm3 MPV (6-9.5) fl Gran % (36.0-66.0) % Eos # (Auto) (0-0.5) Absolute Lymphs (auto) (1.0-4.6) Absolute Monos (auto) (0.0-1.3) Lymphocytes % (24.0-44.0) % Monocytes % (0.0-12.0) % Eosinophils % (0.00-5.0) % Basophils % (0.0-0.4) % Absolute Granulocytes (1.4-6.9) Basophils # (0-0.4) PT (8.83-12.87) SECONDS INR (0.8-3.0) D-Dimer (215-500) ng/mL Sodium (137-145) mmol/L Potassium (3.5-5.1) mmol/L Chloride (98-107) mmol/L Carbon Dioxide (22-30) mmol/L Anion Gap (5-15) MEQ/L BUN (9-20) mg/dL Creatinine (0.66-1.25) mg/dL Estimated GFR ML/MIN Glucose (74-106) mg/dL Calcium (8.4-10.2) mg/dL Total Bilirubin (0.2-1.3) mg/dL AST (17-59) U/L ALT (0-50) U/L Alkaline Phosphatase (38-126) U/L Troponin I < 0.012 < 0.012 (0.000-0.034) ng/mL NT-Pro-B Natriuret Pep (0-900) pg/mL Serum Total Protein (6.3-8.2) g/dL Albumin (3.5-5.0) g/dL Triglycerides 287 H (30-150) mg/dL Cholesterol 185 (50-200) mg/dL LDL Cholesterol 112 H (30-100) mg/dL HDL Cholesterol 28 L (40-60) mg/dL Heart Disease Risk Ratio 6.6 - Radiology Exams Ordered Rad Exams-Entire Visit: Radiology Procedures Category Date Time Status CHEST 1 VIEW (PORTABLE) Stat Exams 08/12/18 19:18 Completed - Procedures and Test Procedures and Tests throughout Hospitalization: Therapy Orders & Screens 08/12/18 20:21 Oxygen Nasal Cannula 2 lpm Comment: 08/13/18 03:00 EKG ONCE Comment: Diagnosis: Deconditioning r/t CHF, cellulitis 08/14/18 05:00 EKG ONCE Comment: Diagnosis: Deconditioning r/t CHF, cellulitis 08/15/18 05:00 EKG ONCE Comment: Diagnosis: Deconditioning r/t CHF, cellulitis 08/16/18 05:00 EKG ONCE Comment: Diagnosis: Deconditioning r/t CHF, cellulitis - Discharge Discharge Date: 08/13/18 Disposition: Home, Self-Care Condition: Stable Prescriptions: New Meloxicam 7.5 mg [Mobic 7.5 MG] 7.5 mg PO DAILY #30 tablet Continue Nebivolol HCl [Bystolic] 5 mg PO DAILY #10 tablet Fluoxetine HCl 10 mg [Prozac 10 mg] 10 mg DAILY Follow up with: DANIEL ZEPEDA MD [Primary Care Provider] - 1 Week
[2018-08-13] MEDS ORDERED: NITRO-BID 2% UD PACKETS TOP SCH (14:00)
[2018-08-13] MEDS ORDERED: PROZAC 10 MG PO SCH (22:00)
== END 2018-08-13 14:26 | disposition home or self-care (01) ==
LOC: ED 18:53 → MED SURG 21:05
PROVIDERS: ADMIT General Practice; ATTEND General Practice
DX: R07.9 Chest pain, unspecified (principal); M25.512 Pain in left shoulder; I10 Essential (primary) hypertension; Z79.899 Other long term (current) drug therapy; Z79.82 Long term (current) use of aspirin; J44.9 Chronic obstructive pulmonary disease, unspecified
CPT/HCPCS: 36000; 36415; 71045; 80053; 80061; 83721; 83880; 84484; 85025; 85379; 85610; 93005; 93041; 94760; 96360; 96361; 99285; G0378; J2405; A9270-GY

== ENCOUNTER 2020-09-02 02:06 | Emergency (ER) | payer OTHER ==
[2020-09-02 02:22] VITALS: O2SAT 98
--- NOTE | 2020-09-02 02:31 | ERPHSYRPT ---
- History of Present Illness Time Seen by Provider: 09/02/20 02:25 Source: patient Exam Limitations: no limitations Patient Subjective Stated Complaint: "I tripped and rolled my ankle." Triage Nursing Assessment: patient reported having three or four beers while enjoying a night by a campfire. He was getting up for another beer when he tripped over a log. he reported hearing a snapping sound in the left ankle accompanied by intense immediate pain described as a throbbing sensation rated 8/10. Denied striking his head. Pedal pulses +3 bilateral. Noted swelling and ecchymosis to the left ankle. No noted deformities. Decreased ROM and decreased ability to bear weight. Physician History: "I tripped and rolled my ankle." 30 minutes ago patient reported having three or four beers while enjoying a night by a campfir e. He was getting up for another beer when he tripped over a log. he reported hearing a snapping sound in the left ankle accompanied by intense immediate pain described as a throbbing sensation rated 8/10. Denied striking his head. Method of Injury: fell Occurred: just prior to arrival Quality: constant Severity of Pain-Max: moderate Severity of Pain-Current: moderate Lower Extremities Pain: ankle: left Modifying Factors: Improves With: immobilization Associated Symptoms: unable to bear weight, snapping sensation, popping sensation Allergies/Adverse Reactions: No Known Drug Allergies Allergy (Verified 09/02/20 02:07) Home Medications: Atorvastatin Calcium 1 tab PO DAILY 09/02/20 [History] Hx Tetanus, Diphtheria Vaccination/Date Given: Yes Hx Influenza Vaccination/Date Given: Yes Hx Pneumococcal Vaccination/Date Given: No Travel Risk - International Travel Have you traveled outside of the country in past 3 weeks: No - Coronavirus Screening Are you exhibiting any of the following symptoms?: No Close contact with a COVID-19 positive Pt in past 14-21 Days: No - Vaccine Status Have you recieved a Covid-19 vaccination: No - Review of Systems Constitutional: No Symptoms Eyes: No Symptoms Ears, Nose, & Throat: No Symptoms Respiratory: No Symptoms Cardiac: No Symptoms Abdominal/Gastrointestinal: No Symptoms Genitourinary Symptoms: No Symptoms Musculoskeletal: Fall, Joint Pain, Joint Swelling Skin: No Symptoms - Past Medical History Pertinent Past Medical History: Yes Neurological History: No Pertinent History ENT History: No Pertinent History Cardiac History: Hypertension Respiratory History: Bronchitis, COPD, Pneumonia Endocrine Medical History: No Pertinent History Musculoskeletal History: No Pertinent History GI Medical History: GERD, Hernia History: No Pertinent History Psycho-Social History: Anxiety, Depression Male Reproductive Disorders: No Pertinent History Other Medical History: HIATAL HERNIA - Past Surgical History Past Surgical History: Yes Neuro Surgical History: No Pertinent History Cardiac: No Pertinent History Respiratory: No Pertinent History Gastrointestinal: Appendectomy, Hernia Repair Genitourinary: No Pertinent History Musculoskeletal: Amputation Male Surgical History: No Pertinent History Other Surgical History: RIGHT PINKY AMPUTATION. Hiatal hernia repair. Abdominal hernia repair. - Social History Smoking Status: Former smoker How long have you smoked: 30 years Exposure to second hand smoke: Yes Drug Use: none Patient Lives Alone: No - Nursing Vital Signs Nursing Vital Signs: Initial Vital Signs Pulse Rate 101 H 09/02/20 02:07 Respiratory Rate 18 09/02/20 02:07 Blood Pressure 150/96 09/02/20 02:07 O2 Sat by Pulse Oximetry 98 09/02/20 02:07 Pain Scale Pain Intensity 8 - Physical Exam General Appearance: no apparent distress Eyes, Ears, Nose, Throat Exam: normal ENT inspection Neck Exam: normal inspection Cardiovascular/Respiratory Exam: chest non-tender Gastrointestinal/Abdominal Exam: non-tender Back Exam: normal inspection Hips Exam: bilateral: non-tender Legs Exam: bilateral leg: non-tender Ankle Exam: left ankle: bone tenderness, deformity, joint effusion Foot Exam: bilateral foot: non-tender Neuro/Tendon Exam: normal sensation Mental Status Exam: alert, oriented x 3 Skin Exam: normal color SpO2 Interpretation: normal SpO2: 98 O2 Delivery: Room Air Procedures - Splinting Time of Procedure: 02:28 Location of Splint: Left, Ankle Type of Splint: Walking Boot/Shoe Splint Applied By: ED Nurse Pre-Proc Neuro Vasc Exam: normal Post-Proc Neuro Vasc Exam: neurovascular intact, good alignment - Course Nursing assessment & vital signs reviewed: Yes - Radiology Exams Ankle X-ray Interpretation: Reviewed by me (lower fibular fracture left) Ordered Tests: Active Orders 24 hr Category Date Time Status ANKLE (3 VIEWS) Stat Exams 09/02/20 02:15 Ordered - Progress Progress: improved, pain not gone completely Counseled pt/family regarding: diagnosis, need for follow-up, rad results - Departure Departure Disposition: Home Clinical Impression: Closed left fibular fracture Qualifiers: Encounter type: initial encounter Fibula location: distal physis (incl. Salter- [place]) Qualified Code(s): S89.302A - Unspecified physeal fracture of lower end of left fibula, initial encounter for closed fracture Condition: Stable Critical Care Time: No Referrals: ORTHO - [facility] [NON-STAFF PHY W/O PRIVILEGES] - [facility]-Ortho M-F [id number] Instructions: Ankle Fracture (DC) Additional Instructions: ANNAYINA FU was seen on 09/02/20 n the Emergency Room. At that time you were treated for an emergent condition, during your visit Laboratory, Radiology and/or other procedures may have been ordered. It is very important that you follow-up with your Primary Care Physician within the next 24-48 hours to review your Emergency Room visit and the final results of testing that was ordered. Some test results such as Urine Cultures, Blood Cultures, and other cultures if ordered will not be finalized for 24-48 hours. If you do not have a Primary Care Provider please call the medical records department at [phone] ext [phone] to obtain a copy of your results or you may sign into our patient portal to obtain these results by visiting us @ [email or web address] and completing the following steps: 1. Click on the Patient Portal link 2. Click the Patient Self Enrollment Link to complete the enrollment form and entering your 3. Once the enrollment form is completed you will receive an email with a temporary ID and password at the email address you provided. 4. Next choose a user name and password. Your user name must be at least 4 characters long and your password must be at least 4 characters long. 5. Choose a security question from the list and provide your answer to the question. If you already have signed into the Health Portal you may access your Health Care Information 10/11 by the following steps: 1. Login to our website @ [email or web address] 2. Enter your original user name and password. FAQS The [facility] Health Portal is an online tool that contains your Lab Results, Radiology Reports, Visit History, Discharge Instructions and Health Summary Lab and Radiology Results will not be available for 72 hours on the portal. The Portal is a secure site, passwords are encryted and URLs are re-written so they cannot be copied and pasted. You and authorized family members are the only ones who can access your Portal. Also there is a timeout feature that protects your information if you leave the Portal page open. If you have technical difficulty please use the Contact Us link on the page this will allow you to submit any questions you have regarding the Portal or you may contact the Medical Record Department at [phone] ext [phone]. Prescriptions: Hydrocodone Bit/Acetaminophen [Hydrocodon-Acetaminophn 10-325] 10 - 325 mg PO QID #15 tablet MDD 4
[2020-09-02 02:40] VITALS: PULSE 98
[2020-09-02 02:41] VITALS: BP 118/85
[2020-09-02] MEDS ORDERED: TORAdol 30 mg Injection ONE (02:44)
[2020-09-02] MEDS ORDERED: TORAdol 30 mg Injection IM ONE (02:45)
--- NOTE | 2020-09-02 07:13 | XRAY ---
Indication: Pain following fall. Comparison: None 3 view left ankle demonstrates minimally displaced lateral malleolus oblique fracture with soft tissue swelling. No other bony, articular, or soft tissue abnormalities.
== END 2020-09-02 03:04 | disposition home or self-care (01) ==
LOC: ED 02:06
DX: S89.392A Other physeal fracture of lower end of left fibula, initial encounter for closed fracture (principal); W18.09XA Striking against other object with subsequent fall, initial encounter; Y93.01 Activity, walking, marching and hiking; Y92.89 Other specified places as the place of occurrence of the external cause; M25.472 Effusion, left ankle
CPT/HCPCS: 73610; 96372; 99284; J1885

== ENCOUNTER 2022-09-19 13:34 | Emergency (ER) | payer OTHER ==
[2022-09-19] MEDS ORDERED: Sodium Chloride 0.9% 1000 ML 1,000 ML IV STA ×3 (13:41→14:35)
[2022-09-19] MEDS ORDERED: Sodium Chloride 0.9% 1000 ML 1,000 ML ONE ×3 (13:42→14:36)
[2022-09-19] MEDS ORDERED: Zofran 4 MG/2 ML VIAL ONE (13:44)
[2022-09-19] MEDS ORDERED: Zofran 4 MG/2 ML VIAL IV ONE (13:44)
[2022-09-19 13:47] VITALS: BP 127/88
[2022-09-19 14:18] LABS: BASOPHIL % 0.6 % (0.0-0.4); Basophil (Absolute #) 0.08 x10^3/uL (0-0.4); Eosinophil % 2.2 % (0.00-5.0); Eosinophil (Absolute #) 0.28 x10^3/uL (0-0.5); Hematocrit 48.9 % (42-50); IMMATURE GRAN # 0.06 x10^3u/L (0.00-0.03); IMMATURE GRAN % 0.5 % (0.00-0.4); Lymphocyte (Absolute #) 3.56 x10^3/uL (1.0-4.6); Lymphocytes % 28.2 % (24.0-44.0); Mean Cell Volume 91.2 fL (78-100); Mean Corpuscular Hemoglobin 31.7 pg (26-32); Mean Corpuscular Hgb Concent. 34.8 g/dL (32-36); Mean Platelet Volume 10.5 fL (7.5-11.0); Monocyte (Absolute #) 1.15 x10^3/uL (0.0-1.3); Monocytes % 9.1 % (0.0-12.0); Neutrophil % 59.4 % (36.0-66.0); Platelet Count 220 x10^3/uL (150-450); Red Blood Count 5.36 x10^6/uL (4.1-5.6); Red Cell Distribution Width 12.3 % (11.5-14.0); White Blood Count 12.6 x10^3/uL (4.0-10.5)
--- NOTE | 2022-09-19 14:22 | XRAY ---
Indication: Syncope. Comparison: August 12, 2018 Portable chest remains clear again with incidental right mid lung calcified granuloma. Heart not enlarged. Bony thorax intact again with mild degenerative changes. No new/acute findings.
[2022-09-19 14:48] LABS: ALBUMIN 4.4 g/dL (3.5-5.0); ALKALINE PHOSPHATASE 82 U/L (38-126); AMYLASE 74 U/L (30-110); BLOOD UREA NITROGEN 12 mg/dL (9-20); CHLORIDE 101 mmol/L (98-107); Calcium 8.6 mg/dL (8.4-10.2); Creatinine 1 0.96 mg/dL (0.66-1.25); EST GLOMERULAR FILTRATION RATE > 60.0 ML/MIN; Glucose 151 mg/dL (74-106); LIPASE 155 U/L (23-300); Potassium 3.5 mmol/L (3.5-5.1); SGOT/AST 60 U/L (17-59); SGPT/ALT 57 U/L (0-50); SODIUM 137 mmol/L (137-145); TROPONIN < 0.012 ng/mL (0.000-0.034); Total Protein 7.8 g/dL (6.3-8.2)
[2022-09-19 14:49] LABS: Carbon Dioxide 14 mmol/L (22-30)
--- NOTE | 2022-09-19 15:02 | XRAY ---
Indication: Syncope. Multiple contiguous axial images obtained through the head without contrast. Comparison: None Age-appropriate global atrophy. No acute intracranial hemorrhage, abnormal extra-axial fluid collection, or mass effect. Fourth ventricle is midline without hydrocephalus. Haywood-white matter differentiation preserved. Bony calvarium intact.. Mild mucosal thickening floor of both maxillary sinuses. Mastoid air cells are clear. Impression: Minimal paranasal sinus disease. Remaining CT head without contrast exam is negative.
--- NOTE | 2022-09-19 15:41 | ERPHSYRPT ---
- History of Present Illness Time Seen by Provider: 09/19/22 13:45 Source: patient, family, EMS Exam Limitations: other (Seems like it could be postictal) Patient Subjective Stated Complaint: Pt reports he was giving plasma when he started feeling nauseated/sweaty/lightheaded/dizzy and can not remember after that until arriving to hospital. Pts friend that brought pt said that pt was giving plasma and lost consciousness. Triage Nursing Assessment: Pt alert and oriented x3. Wheeled to ED cot, transferred with assistance. Pale/diaphoretic/skin cool. No respiratory distress. Appears to be fatigued. Dry heaving. Physician History: It is a 57-year-old white male who presents by ambulance from a blood draw where he was donating plasma. While the plasma donation was in process he suddenly became dizzy lightheaded nauseated and sweaty and lost consciousness. He did admit to the nurse that he been drinking heavily yesterday but none today he has no previous history of syncope or seizures. He does have a history of some chest pains in the past and hyperlipidemia. He was incontinent of stool and urine. Patient also had nausea and vomiting on arrival Timing/Duration: today Severity: moderate Character of Deficits: other (Syncope versus seizure) Baseline/Normal Cognition: alert oriented x 3 Current Cognition: alert oriented x 3 Baseline Gait: walks w/o assistance Associated Symptoms: loss of consciousness Allergies/Adverse Reactions: No Known Drug Allergies Allergy (Verified 09/19/22 13:35) Home Medications: Atorvastatin Calcium 1 tab PO DAILY 09/02/20 [History] Hx Tetanus, Diphtheria Vaccination/Date Given: Yes Hx Influenza Vaccination/Date Given: Yes Hx Pneumococcal Vaccination/Date Given: No Travel Risk - International Travel Have you traveled outside of the country in past 3 weeks: No - Coronavirus Screening Are you exhibiting any of the following symptoms?: No Close contact with a COVID-19 positive Pt in past 14-21 Days: No - Vaccine Status Have you recieved a Covid-19 vaccination: No - Review of Systems Constitutional: No Fever, No Chills Eyes: No Symptoms Ears, Nose, & Throat: No Symptoms Respiratory: No Cough, No Dyspnea Cardiac: No Chest Pain, No Edema, No Syncope Abdominal/Gastrointestinal: Nausea, Vomiting, No Abdominal Pain, No Diarrhea Genitourinary Symptoms: No Dysuria Musculoskeletal: No Back Pain, No Neck Pain Skin: No Rash Neurological: No Dizziness, No Focal Weakness, No Sensory Changes Psychological: No Symptoms Endocrine: No Symptoms All Other Systems: Reviewed and Negative - Past Medical History Pertinent Past Medical History: Yes Neurological History: No Pertinent History ENT History: No Pertinent History Cardiac History: Hypertension Respiratory History: Bronchitis, COPD, Pneumonia Endocrine Medical History: No Pertinent History Musculoskeletal History: No Pertinent History GI Medical History: GERD, Hernia History: No Pertinent History Psycho-Social History: Anxiety, Depression Male Reproductive Disorders: No Pertinent History Other Medical History: HIATAL HERNIA - Past Surgical History Past Surgical History: Yes Neuro Surgical History: No Pertinent History Cardiac: No Pertinent History Respiratory: No Pertinent History Gastrointestinal: Appendectomy, Hernia Repair Genitourinary: No Pertinent History Musculoskeletal: Amputation Male Surgical History: No Pertinent History Other Surgical History: RIGHT PINKY AMPUTATION. Hiatal hernia repair. Abdominal hernia repair. - Social History Smoking Status: Former smoker How long have you smoked: 30 years Exposure to second hand smoke: Yes Drug Use: marijuana Patient Lives Alone: No - Nursing Vital Signs Nursing Vital Signs: Initial Vital Signs Pulse Rate 107 H 09/19/22 13:34 Respiratory Rate 24 09/19/22 13:34 Blood Pressure 127/88 09/19/22 13:34 O2 Sat by Pulse Oximetry 98 09/19/22 13:34 Pain Scale Pain Intensity 0 - [place] Coma Scale Best Eye Response (Lucas): (4) open spontaneously Best Verbal Response (Lucas): (5) oriented Best Motor Response (Lucas): (6) obeys commands [place] Total: 15 - Physical Exam General Appearance: mild distress Eye Exam: bilateral eye: PERRL, EOMI Ears, Nose, Throat Exam: normal ENT inspection, moist mucous membranes Neck Exam: normal inspection, non-tender, supple Respiratory: normal breath sounds, lungs clear, airway intact, No respiratory distress Cardiovascular: regular rate/rhythm, No edema Gastrointestinal: soft, No tenderness, No distention Back Exam: normal inspection Extremity Exam: normal inspection, No pedal edema Mental Status: alert, oriented x 3, cooperative gig tender Exam: tongue midline Motor/Sensory: no motor deficit, no sensory deficit Skin Exam: normal color, warm, dry, No rash SpO2 Interpretation: normal SpO2: 98 O2 Delivery: Room Air - Course Nursing assessment & vital signs reviewed: Yes EKG Interpreted by Me: RATE (101), Sinus Tach, Left [place] Deviation, NORMAL INTERVALS, NORMAL QRS, Non-specific ST Changes - Radiology Exams Chest X-ray Interpretation: Reviewed by me - CT Exams Head CT Interpretation: Negative Ordered Tests: Active Orders 24 hr Category Date Time Status EKG-ER Only STAT Care 09/19/22 14:00 Active IV Insertion STAT Care 09/19/22 13:41 Active POCT Glucose Check STAT Care 09/19/22 13:41 Active CHEST 1 VIEW (PORTABLE) Stat Exams 09/19/22 14:01 Completed HEAD WITHOUT CONTRAST [CT] Stat Exams 09/19/22 14:32 Completed AMYLASE Stat Lab 09/19/22 14:15 Completed CBC W DIFF Stat Lab 09/19/22 14:15 Completed CMP Stat Lab 09/19/22 14:15 Completed LIPASE Stat Lab 09/19/22 14:15 Completed Lactic Acid Stat Lab 09/19/22 14:15 Completed Lactic Acid Stat Lab 09/19/22 16:29 Received Lactic Acid Urgent Lab 09/19/22 16:25 Completed NT PRO BNPII Stat Lab 09/19/22 14:15 Completed TROPONIN Q4H Lab 09/19/22 14:15 Completed TROPONIN Q4H Lab 09/19/22 18:00 Ordered TROPONIN Q4H Lab 09/19/22 22:00 Ordered UA W/RFX UR CULTURE Stat Lab 09/19/22 14:00 Ordered Urine Triage Profile Stat Lab 09/19/22 14:01 Ordered Medication Summary Discontinued Medications Generic Name Dose Route Start Last Admin Trade Name Freq PRN Reason Stop Dose Admin Sodium Chloride 1,000 mls @ 999 mls/hr 09/19/22 13:41 09/19/22 15:02 Sodium Chloride 0.9% 1000 Ml IV 09/19/22 14:41 Infused .Q1H1M STA Infusion Sodium Chloride Confirm 09/19/22 13:42 Sodium Chloride 0.9% 1000 Ml Administered 09/19/22 13:43 Dose 1,000 mls @ ud .ROUTE .STK-MED ONE Sodium Chloride 1,000 mls @ 999 mls/hr 09/19/22 14:00 09/19/22 14:41 Sodium Chloride 0.9% 1000 Ml IV 09/19/22 15:00 Infused .Q1H1M STA Infusion Sodium Chloride Confirm 09/19/22 14:04 Sodium Chloride 0.9% 1000 Ml Administered 09/19/22 14:05 Dose 1,000 mls @ ud .ROUTE .STK-MED ONE Sodium Chloride 1,000 mls @ 999 mls/hr 09/19/22 14:35 09/19/22 15:42 Sodium Chloride 0.9% 1000 Ml IV 09/19/22 15:35 Infused .Q1H1M STA Infusion Sodium Chloride Confirm 09/19/22 14:36 Sodium Chloride 0.9% 1000 Ml Administered 09/19/22 14:37 Dose 1,000 mls @ ud .ROUTE .STK-MED ONE Ondansetron HCl 4 mg 09/19/22 13:44 09/19/22 13:45 Ondansetron Hcl 4 Mg/2 Ml Vial IV 09/19/22 13:45 4 mg STAT ONE Administration Ondansetron HCl Confirm 09/19/22 13:44 Ondansetron Hcl 4 Mg/2 Ml Vial Administered 09/19/22 13:45 Dose 4 mg .ROUTE .STK-MED ONE Lab/Rad Data: Laboratory Result Diagrams 09/19/22 14:15 09/19/22 14:15 Laboratory Results 09/19/22 09/19/22 09/19/22 Range/Units 16:25 14:15 14:15 WBC (4.0-10.5) x10^3/uL RBC (4.1-5.6) x10^6/uL Hgb (12.5-18.0) g/dL Hct (42-50) % MCV (78-100) fL MCH (26-32) pg MCHC (32-36) g/dL RDW (11.5-14.0) % Plt Count (150-450) x10^3/uL MPV (7.5-11.0) fL Gran % (36.0-66.0) % Immature Gran % (Auto) (0.00-0.4) % Nucleat RBC Rel Count (0.00-0.1) % Eos # (Auto) (0-0.5) x10^3/uL Immature Gran # (Auto) (0.00-0.03) x10^3u/L Absolute Lymphs (auto) (1.0-4.6) x10^3/uL Absolute Monos (auto) (0.0-1.3) x10^3/uL Absolute Nucleated RBC (0.00-0.01) x10^3u/L Lymphocytes % (24.0-44.0) % Monocytes % (0.0-12.0) % Eosinophils % (0.00-5.0) % Basophils % (0.0-0.4) % Absolute Granulocytes (1.4-6.9) x10^3/uL Basophils # (0-0.4) x10^3/uL Sodium 137 (137-145) mmol/L Potassium 3.5 (3.5-5.1) mmol/L Chloride 101 (98-107) mmol/L Carbon Dioxide 14 L* (22-30) mmol/L Anion Gap 25.0 H (5-15) MEQ/L BUN 12 (9-20) mg/dL Creatinine 0.96 (0.66-1.25) mg/dL Estimated GFR > 60.0 ML/MIN Glucose 151 H (74-106) mg/dL Lactic Acid 1.8 (0.4-2.0) Calcium 8.6 (8.4-10.2) mg/dL Total Bilirubin 0.40 (0.2-1.3) mg/dL AST 60 H (17-59) U/L ALT 57 H (0-50) U/L Alkaline Phosphatase 82 (38-126) U/L Troponin I < 0.012 (0.000-0.034) ng/mL NT-Pro-B Natriuret Pep < 20.0 (<300) pg/mL Serum Total Protein 7.8 (6.3-8.2) g/dL Albumin 4.4 (3.5-5.0) g/dL Amylase 74 (30-110) U/L Lipase 155 (23-300) U/L 09/19/22 09/19/22 Range/Units 14:15 14:15 WBC 12.6 H (4.0-10.5) x10^3/uL RBC 5.36 (4.1-5.6) x10^6/uL Hgb 17.0 (12.5-18.0) g/dL Hct 48.9 (42-50) % MCV 91.2 (78-100) fL MCH 31.7 (26-32) pg MCHC 34.8 (32-36) g/dL RDW 12.3 (11.5-14.0) % Plt Count 220 (150-450) x10^3/uL MPV 10.5 (7.5-11.0) fL Gran % 59.4 (36.0-66.0) % Immature Gran % (Auto) 0.5 H (0.00-0.4) % Nucleat RBC Rel Count 0.0 (0.00-0.1) % Eos # (Auto) 0.28 (0-0.5) x10^3/uL Immature Gran # (Auto) 0.06 H (0.00-0.03) x10^3u/L Absolute Lymphs (auto) 3.56 (1.0-4.6) x10^3/uL Absolute Monos (auto) 1.15 (0.0-1.3) x10^3/uL Absolute Nucleated RBC 0.00 (0.00-0.01) x10^3u/L Lymphocytes % 28.2 (24.0-44.0) % Monocytes % 9.1 (0.0-12.0) % Eosinophils % 2.2 (0.00-5.0) % Basophils % 0.6 (0.0-0.4) % Absolute Granulocytes 7.50 H (1.4-6.9) x10^3/uL Basophils # 0.08 (0-0.4) x10^3/uL Sodium (137-145) mmol/L Potassium (3.5-5.1) mmol/L Chloride (98-107) mmol/L Carbon Dioxide (22-30) mmol/L Anion Gap (5-15) MEQ/L BUN (9-20) mg/dL Creatinine (0.66-1.25) mg/dL Estimated GFR ML/MIN Glucose (74-106) mg/dL Lactic Acid 6.5 H (0.4-2.0) Calcium (8.4-10.2) mg/dL Total Bilirubin (0.2-1.3) mg/dL AST (17-59) U/L ALT (0-50) U/L Alkaline Phosphatase (38-126) U/L Troponin I (0.000-0.034) ng/mL NT-Pro-B Natriuret Pep (<300) pg/mL Serum Total Protein (6.3-8.2) g/dL Albumin (3.5-5.0) g/dL Amylase (30-110) U/L Lipase (23-300) U/L - Progress Progress: improved Progress Note: 09/19/22 16:37 After work-up was complete the patient was alert oriented talking to us we did instruct [facility] for further evaluation. Counseled pt/family regarding: lab results, need for follow-up, rad results Medical Desision Making - Independent Historian Additional History obtained from: Spouse - Diagnostic Testing Diagnostic test were ordered, analyzed, and reviewed by me: Yes Radiological Interpretation: Reviewed by me - Risk of complications The pt has a mod risk of morbidity or mortality based on: Need for prescription drug management - Departure Departure Disposition: Home Clinical Impression: Seizure Condition: Stable Critical Care Time: No Referrals: [facility],'S [Primary Care Provider] - Follow up/PCP as directed
[2022-09-19 16:38] VITALS: O2SAT 98
[2022-09-19 17:04] VITALS: PULSE 81
== END 2022-09-19 16:58 | disposition home or self-care (01) ==
LOC: ED 13:34
DX: R56.9 Unspecified convulsions (principal); R42 Dizziness and giddiness; R11.2 Nausea with vomiting, unspecified; E78.5 Hyperlipidemia, unspecified; I10 Essential (primary) hypertension; Z79.899 Other long term (current) drug therapy
CPT/HCPCS: 36000; 36415; 70450; 71045; 80053; 82150; 83605; 83690; 83880; 84484; 85025; 93005; 96360; 96361; 96374; 99284; J2405